=== PATIENT | female | born 1955 | race Caucasian/White ===

== ENCOUNTER 2023-08-23 01:09 | Day surgery (SDC) | payer MEDICARE, SELFPAY ==
[2023-08-16 11:02] VITALS: BMI 28.3
--- NOTE | 2023-08-16 11:22 | PC.NURSE ---
Report to the Outpatient Waiting Room, entrance under the green pavilion located off [facility], at time ___0600____ on date __08/23/23 . Planned Procedure Time: ___729 . Time changes happen often and if your time is changed the preop area will call you the afternoon before. - You and your visitor will be asked to self-screen and do not enter if you have any COVID symptoms. - A mask is optional within the hospital at this time. Patients may have clear liquids (water, carbonated beverages, clear teas, apple juice) until 3 hours prior to surgery (0430 AM) with a maximum of 20 ounces. - No food from midnight until time of surgery - Infants may have breast milk until 4 hours before surgery, infant formula 6 hours prior to surgery. - Children will be allowed to drink immediately following surgery. If applicable, please bring a bottle or sippy cup to assist with drinking. Juice, water, soda, and popsicles are readily available. For infants on formula, please bring formula the day of surgery. Pacifiers are allowed. Take the following medications with a SIP of water the morning of surgery: NONE DO NOT STOP ANY OF YOUR OTHER PRESCRIPTION MEDICATIONS PRIOR TO SURGERY ?EXCEPT THE FOLLOWING Medications to discontinue per physician NONE Date to take last dose Please no make-up, nail frisian, hairspray, perfume, deodorant, or body powder the day of surgery. No jewelry (including any body piercings) or valuables the day of surgery, leave them at home. Please take a shower or bath the night before, or the morning of, surgery with an antibacterial soap. Wear comfortable, loose fitting clothing. Children are encouraged to wear pajamas. - Jewelry must be removed prior to entering the operating room. Rings and piercings that are not removed may be cut off. - The hospital will not accept responsibility for valuables. - Please leave all valuables, including medications, at home the day of surgery. If you are going home after surgery, a licensed funeral car driver must drive you home. - NO public transportation without another adult if you receive anesthesia. - We recommend that an adult stay with you for 24 hours following discharge. - We also recommend that you do not drive, make important decision, drink alcoholic beverages, or take any drugs that were not prescribed by your health care provider for at least 24 hours after your discharge time. For Pediatric surgeries, we recommend two adults accompany the child home. Follow any additional instructions given to you from your surgeon. If you or anyone in your household have experienced Covid symptoms in the past week, please notify your surgeon or the nurse liaison at the phone number below for possible testing. Telephone instructions given to PT and asked if any additional questions and then verbalized understanding. Patient advised to call surgeon office or pre surgery nurse liaison [phone] if any additional questions.
[2023-08-23 07:04] VITALS: BP 133/81; PULSE 86; RESP 18; TEMP 36.7; O2SAT 100
--- NOTE | 2023-08-23 07:29 | WPDHPUPDATE1 ---
History and Physical Update Update Date/Time: 08/23/23 07:29 History and Physical has been reviewed, including an updated exam of the patient. There are NO changes in the patient's condition. Risks, benefits, and alternatives have been discussed and questions answered. Patient agrees to proceed with procedure.
--- NOTE | 2023-08-23 07:30 | WPDHPUPDATE1 ---
History and Physical Update Update Date/Time: 08/23/23 07:30 History and Physical has been reviewed, including an updated exam of the patient. There are NO changes in the patient's condition. Risks, benefits, and alternatives have been discussed and questions answered. Patient agrees to proceed with procedure.
[2023-08-23] MEDS: LACTATED RINGERS 1,000 ML 30 ML IV CONT (07:33)
--- NOTE | 2023-08-23 09:34 | SUR.OPER ---
Frozen sections x 2 sent with [facility] and received in pathology by Sharlene
[2023-08-23] MEDS: LIDO 1%/EPINEPHRINE 1:100,000 20 ML VIAL 10 ML INFILTRATE (09:36)
[2023-08-23] MEDS: BACITRACIN OINTMENT 15 GM TUBE 1 APPLIC TOPICAL (10:38)
[2023-08-23 10:54] VITALS: BP 115/67; PULSE 77; RESP 16; TEMP 36.5; O2SAT 96
--- NOTE | 2023-08-23 11:10 | W.PM.PROC2 ---
Procedure Note - Detailed Date of Procedure 08/23/23 Pre-op Diagnosis BCC upper nasal lobule, BCC left Cheek Post-op Diagnosis Same Procedure Performed 2.5 cm excision of basal cell carcinoma of the left cheek with frozen section intermediate repair 6 cm. 1.3 cm excision of basal cell carcinoma of the upper nasal lobule with frozen section and local tissue transfer 2.5 sq cm Surgeon Augustine Farley MD Anesthesia MAC Description of Procedure The 2 sites of concern on the patient's face were marked with her consent, 1 on the left cheek and 1 on the left upper nasal lobule. She was then sent to the operating room where she was placed supine on the operating table and given IV sedation with LMA. The face was prepped and draped in usual fashion. Time-out was held and confirmed. The 2 sites were carefully examined under loupe magnification and ink markings placed for planned excision around these tumors. These areas were widely infiltrated with 1% lidocaine with epinephrine. The lesion from the left cheek was taken 1st as a full-thickness skin ellipse to include some underlying fat. The specimen was marked at the most superior aspect with a suture for orientation to the pathologist. This was designated as 12:00 p.m.. The pathologist reports basal cell carcinoma and all margins free. The wound was closed with undermining of at least a cm in all directions. The wounds were approximated with intradermal 4-0 Vicryl sutures multiple points. The skin was then closed with a running is 5 0 chromic suture. Once the report came back from the pathologist regarding the upper nasal lobule lesion indicating basal cell carcinoma with free margins the reconstruction was undertaken. Tissue had been stretched quite a bit on the left side to close that wound and we opted to borrow local tissue for transfer from the right side. This was designed as a bilobed flap. It was incised, carefully rotated and inset with 4-0 Vicryl, 5 0 nylon and running 5 0 chromic . The closure was accomplished without undue tension and there was no distortion of the nasal lobule or ala.. Antibiotic ointment was applied to the sutures and she is discharged from the operating room stable condition. She has a prescription for cephalexin 500 mg t.i.d. 15. And no prescription for narcotics at her request. Estimated Blood Loss 5 Drains No Packing No Pathology Yes Complications No immediate complications Condition Stable Disposition Same day
[2023-08-23 11:24] VITALS: BP 115/67; PULSE 77; RESP 16
[2023-08-23 12:03] VITALS: BP 106/62; PULSE 70; RESP 14
== END 2023-08-23 12:15 | disposition home or self-care (01) ==
PROVIDERS: PCP Nurse Practitioner Family; Visit Provider Plastic Surgery
PROC: (CPT 14060; principal; 2023-08-23 08:30)
DX: C44.311 Basal cell carcinoma of skin of nose (principal); C44.319 Basal cell carcinoma of skin of other parts of face; Z90.49 Acquired absence of other specified parts of digestive tract
CPT/HCPCS: 14060; 11643; 12053; 88305; 88331; A9270; J1100; J2250; J2405; J2704; J3010; J7120